=== PATIENT | female | born 1985 | race Caucasian/White ===

== ENCOUNTER 2019-10-12 09:13 | Inpatient (IN) | payer BC ==
[2019-10-12] MEDS ORDERED: Ondansetron 4 MG/2 ML SDV IVPUSH PRN (10:19)
[2019-10-12] MEDS ORDERED: Water For Irrigation,Sterile 1,000 ML Container IRR PRN (10:19)
[2019-10-12] MEDS ORDERED: Butorphanol 1 MG/ML SDV IVPUSH PRN (10:19)
[2019-10-12] MEDS ORDERED: Carboprost Tromethamine 250 MCG/1 ML Amp IM PRN (10:19)
[2019-10-12] MEDS ORDERED: Tranexamic Acid 1,000 MG in Sodium Chloride 0.9% 100 ML IV PRN (10:19)
[2019-10-12] MEDS ORDERED: Lidocaine 1% 50 ML MDV INJECT PRN (10:19)
[2019-10-12] MEDS ORDERED: Methylergonovine 0.2 MG/1 ML Amp IM PRN (10:19)
[2019-10-12] MEDS ORDERED: Misoprostol 200 MCG Tab PO PRN (10:19)
[2019-10-12] MEDS ORDERED: Sodium Chloride 0.9% 10 ML SDV IV PRN (10:19)
[2019-10-12] MEDS ORDERED: Sodium Chloride 0.9% 2.5 ML Syringe FLUSH PRN (10:19)
[2019-10-12] MEDS ORDERED: Sodium Chloride 0.9% 10 ML Syringe FLUSH PRN (10:19)
[2019-10-12] MEDS ORDERED: Ampicillin 2 GM in Sodium Chloride 0.9% 100 ML IV ONE (10:19)
[2019-10-12] MEDS ORDERED: Nalbuphine 10 MG/1 ML Vial IVPUSH PRN (10:19)
[2019-10-12] MEDS ORDERED: Oxytocin/0.9 % Sodium Chloride 30 UNIT/500 ML BAG IV SCH ×2 (10:30→23:15)
[2019-10-12] MEDS: Lactated Ringers 1,000 ML IV SCH ×3 (10:50→23:42)
[2019-10-12] MEDS: Ampicillin 1 GM in Sodium Chloride 0.9% 50 ML IV SCH ×2 (15:32→19:28)
[2019-10-12] MEDS: Misoprostol 50 MCG (1/2 of 100 MCG) Tab VAG SCH (15:33)
[2019-10-12] MEDS ORDERED: Oxytocin/Lactated Ringers 30 UNIT/500 ML BAG IV SCH (20:00)
--- NOTE | 2019-10-12 22:48 | PCM.PREANE ---
Preanesthetic Assessment - Anesthesia/Transfusion/Family Hx Anesthesia History: Prior Anesthesia Without Reaction Type of Anesthesia Reaction: Other (see below) (some nausea with first surgery, wakes up fast) Family History of Anesthesia Reaction: No Transfusion History: No Prior Transfusion(s) Intubation History: Unknown - Review of Systems General: No Symptoms Pulmonary: No Symptoms Cardiovascular: No Symptoms Gastrointestinal: No Symptoms Neurological: No Symptoms Other: Reports: None - Physical Assessment NPO Status Date: 10/12/19 NPO Status Time: 17:00 Height: 5 ft Weight: 83.915 kg ASA Class: 2 Mental Status: Alert & Oriented x3 Airway Class: Mallampati = 2 Dentition: Reports: Normal Dentition Thyro-Mental Finger Breadths: 3 ROM/Head Extension: Full Lungs: Clear to Auscultation, Normal Respiratory Effort Cardiovascular: Regular Rate, Regular Rhythm, Tachycardia - Lab Values: Laboratory Last Values WBC 11.68 K/uL (4.0-11.0) H 10/12/19 10:40 RBC 4.57 M/uL (4.30-5.90) 10/12/19 10:40 Hgb 13.3 g/dL (12.0-16.0) 10/12/19 10:40 Hct 39.8 % (36.0-46.0) 10/12/19 10:40 MCV 87.1 fL (80.0-98.0) 10/12/19 10:40 MCH 29.1 pg (27.0-32.0) 10/12/19 10:40 MCHC 33.4 g/dL (31.0-37.0) 10/12/19 10:40 RDW Std Deviation 42.9 fl (28.0-62.0) 10/12/19 10:40 RDW Coeff of Arlette 14 % (11.0-15.0) 10/12/19 10:40 Plt Count 153 K/uL (150-400) 10/12/19 10:40 MPV 10.90 fL (7.40-12.00) 10/12/19 10:40 Nucleated RBC % 0.0 /100WBC 10/12/19 10:40 Nucleated RBCs # 0 K/uL 10/12/19 10:40 Membrane Rupture POSITIVE 10/12/19 09:45 Blood Type O NEGATIVE 10/12/19 10:40 Antibody Screen NEGATIVE 10/12/19 10:40 - Allergies Allergies/Adverse Reactions: Allergies Allergy/AdvReac Type Severity Reaction Status Date / Time cefaclor [From Ceclor] Allergy Rash Verified 07/13/19 07:26 morphine Allergy Difficulty Verified 07/13/19 07:26 Breathing - Acknowledgements Anesthesia Type Planned: Epidural Pt an Appropriate Candidate for the Planned Anesthesia: Yes Alternatives and Risks of Anesthesia Discussed w Pt/Guardian: Yes Pt/Guardian Understands and Agrees with Anesthesia Plan: Yes Additional Comments: - 39 5/7 weeks, came in SROM, now augmenting labor, dilated 2-3 cm 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: - Past Surgical History Cardiovascular Surgical History: Reports: Vascular Surgery Other Cardiovascular Surgeries/Procedures: Popliteal artery intrappment Musculoskeletal Surgical History: Reports: Other (See Below) Other Musculoskeletal Surgeries/Procedures:: Exursion compartment entrappment - SUBSTANCE USE Smoking Status *Q: Never Smoker Second Hand Smoke Exposure: No Recreational Drug Use History: No - HOME MEDS Home Medications: Home Meds Omega3,5,6,7,9 No.1/Cerulean Oil [Complete [place] Softgel] 2 tsp DAILY 07/13/19 [ History] - CURRENT (IN HOUSE) MEDS Current Meds: Current Medications Butorphanol Tartrate (Stadol) 1 mg IVPUSH Q1H PRN PRN Reason: Pain Last Admin: 10/12/19 20:59 Dose: 1 mg Carboprost Tromethamine (Hemabate Ds) 250 mcg IM ASDIRECTED PRN PRN Reason: Post Hemorrhage Tranexamic Acid 1,000 mg/ (Sodium Chloride) 110 mls @ 660 mls/hr IV ONETIME PRN PRN Reason: Bleeding Lactated Ringer's (Ringers, Lactated) 1,000 mls @ 150 mls/hr IV ASDIRECTED [facility] Last Admin: 10/12/19 22:38 Dose: 999 mls/hr Oxytocin/Sodium Chloride (Oxytocin 30 Unit/500 Ml-Ns) 30 unit in 500 mls @ 500 mls/hr IV TITRATE [facility] Ampicillin Sodium 1 gm/ Sodium (Chloride) 50 mls @ 100 mls/hr IV Q4H [facility] Last Admin: 10/12/19 19:28 Dose: 100 mls/hr Oxytocin/Lactated Ringer's (Pitocin In Lr 30 Units/500 Ml) 30 unit in 500 mls @ 2 mls/hr IV TITRATE [facility]; Protocol Lidocaine HCl (Xylocaine 1%) 50 ml INJECT ONETIME PRN PRN Reason: Laceration repair Methylergonovine Maleate (Methergine) 0.2 mg IM ASDIRECTED PRN PRN Reason: Post Hemorrhage Misoprostol (Cytotec) 200 mcg PO ONETIME PRN PRN Reason: Post Hemorrhage Misoprostol (Cytotec) 25 mcg VAG Q6H [facility] Last Admin: 10/12/19 15:33 Dose: 25 mcg Nalbuphine HCl (Nubain) 10 mg IVPUSH Q1H PRN PRN Reason: Pain (severe 7-10) Ondansetron HCl (Zofran) 4 mg IVPUSH Q4H PRN PRN Reason: Nausea/Vomiting Sodium Chloride (Saline Flush) 10 ml FLUSH ASDIRECTED PRN PRN Reason: Keep Vein Open Sodium Chloride (Saline Flush) 2.5 ml FLUSH ASDIRECTED PRN PRN Reason: Keep Vein Open Sodium Chloride (Normal Saline) 10 ml IV ASDIRECTED PRN PRN Reason: IV Use Sterile Water (Sterile Water For Irrigation) 1,000 ml IRR ASDIRECTED PRN PRN Reason: delivery Discontinued Medications Ampicillin Sodium 2 gm/ Sodium (Chloride) 100 mls @ 200 mls/hr IV ONETIME ONE Stop: 10/12/19 10:48 Last Admin: 10/12/19 11:10 Dose: 200 mls/hr
[2019-10-12] MEDS ORDERED: Terbutaline 1 MG/ML SDV SUBCUT ONE (23:41)
[2019-10-13] MEDS: Ampicillin 1 GM in Sodium Chloride 0.9% 50 ML IV SCH ×3 (00:06→10:20)
[2019-10-13] MEDS: Lactated Ringers 1,000 ML IV SCH ×2 (03:32→05:01)
[2019-10-13] MEDS ORDERED: Bupivacaine 0.25% 10 ML SDV ONE (05:00)
[2019-10-13] MEDS ORDERED: Oxytocin 10 Units/1 ML SDV ONE (05:04)
[2019-10-13] MEDS ORDERED: Ondansetron 4 MG/2 ML SDV ONE (05:04)
[2019-10-13] MEDS ORDERED: Phenylephrine 1% 10 MG/ML SDV ONE (05:04)
[2019-10-13] MEDS ORDERED: Bupivacaine 0.5% 10 ML SDV ONE (05:30)
[2019-10-13] MEDS ORDERED: Morphine PF 10 MG/10 ML SDV ONE (05:40)
[2019-10-13] MEDS ORDERED: Methylergonovine 0.2 MG/1 ML Amp IM PRN (06:46)
[2019-10-13] MEDS ORDERED: Misoprostol 200 MCG Tab RECTAL PRN (06:46)
[2019-10-13] MEDS ORDERED: Acetaminophen/oxyCODONE 325-5 MG Tab PO PRN ×2 (06:46→07:01)
[2019-10-13] MEDS ORDERED: Lanolin 100% Cream 7 GM Tube TOP PRN (06:46)
[2019-10-13] MEDS ORDERED: Oxytocin 10 Units/1 ML SDV IM PRN (06:46)
[2019-10-13] MEDS ORDERED: diphenhydrAMINE 50 MG/ML SDV IVPUSH PRN ×2 (06:46→07:01)
[2019-10-13] MEDS ORDERED: Ondansetron 4 MG/2 ML SDV IVPUSH PRN ×2 (06:46→07:01)
[2019-10-13] MEDS ORDERED: Tranexamic Acid 1,000 MG in Sodium Chloride 0.9% 100 ML IV PRN (06:46)
[2019-10-13] MEDS ORDERED: Bisacodyl 10 MG Supp RECTAL PRN (06:46)
--- NOTE | 2019-10-13 06:46 | PCM.OPNOTE ---
- General Post-Op/Procedure Note Date of Surgery/Procedure: 10/13/19 Operative Procedure(s): Primary LTCS Findings: Viable male APGARs 7, 9 weight 3370 g. Placenta to pathology. Normal appearing pelvis. Pre Op Diagnosis: 39/6 week IUP. intolerance to labor/ tachycardia Post-Op Diagnosis: Same Anesthesia Technique: Epidural Primary Surgeon: Lindsey Johnson Pathology: placenta Fluid Replacement, Intraop: 1,200 EBL in mLs: 600 Complications: none known Condition: Stable Free Text/Narrative:: Intake & Output 10/12/19 10/12/19 10/13/19 14:59 22:59 06:59 Intake Total 1050 3050 Balance 1050 3050 Dictation [id number]
[2019-10-13] MEDS ORDERED: Lactated Ringers 1,000 ML IV SCH (07:00)
[2019-10-13] MEDS ORDERED: fentaNYL 100 MCG/2 ML SDV IVPUSH PRN (07:01)
[2019-10-13] MEDS ORDERED: Naloxone 0.4 MG/ML Syringe IVPUSH PRN (07:01)
[2019-10-13] MEDS ORDERED: Nalbuphine 10 MG/1 ML Vial IVPUSH PRN (07:01)
[2019-10-13] MEDS: Ketorolac 30 MG/ML SDV IVPUSH SCH ×3 (07:05→18:55)
[2019-10-13] MEDS: Docusate Sodium 100 MG Cap PO SCH ×2 (10:15→21:16)
[2019-10-13] MEDS: Misoprostol 50 MCG (1/2 of 100 MCG) Tab VAG SCH ×2 (10:19→10:20)
[2019-10-13] MEDS: Simethicone 80 MG Tab.Chew PO SCH ×3 (12:01→23:48)
--- NOTE | 2019-10-13 15:45 | OR ---
SURGEON: Lindsey Johnson M.D. DATE OF PROCEDURE: 10/13/2019 PREOPERATIVE DIAGNOSES: 1. 39 and 6 weeks intrauterine . 2. intolerance to labor, tachycardia. POSTOPERATIVE DIAGNOSES: 1. 39 and 6 weeks intrauterine . 2. intolerance to labor, tachycardia. PROCEDURE: Primary low-transverse section. PRIMARY SURGEON: Lindsey Johnson M.D. ANESTHESIA: Epidural. ESTIMATED BLOOD LOSS: 600 mL. COMPLICATIONS: None known. FINDINGS: Viable male score of 7 at one minute and 9 at five minutes. Weight of 3370 g. Delivery of intact placenta, 3-vessel cord. Placenta to pathology. Clear amniotic fluid. DISPOSITION: The patient to LDR and nursery, stable. DESCRIPTION OF PROCEDURE: Marcia is a 33-year-old, G1, P0, at 39-6/7 weeks' gestational age, who presented on the morning of 10/12/2019, with spontaneous rupture of membranes at approximately 3 a.m. She is group B beta strep positive, therefore, was initiated on ampicillin prophylaxis. She was monitored and with no evidence of active labor, was initiated on Cytotec augmentation on the afternoon of 10/12/2019. I assumed care for the patient at approximately 6 p.m. on 10/12/2019. She responded nicely to the dosing of Cytotec, was found to be 2 to 3, 80% effaced, -3 station. Shortly after, she became increasingly uncomfortable, underwent epidural, became more comfortable. She then had spontaneous rupture of the forebag and shortly thereafter had a prolonged deceleration to the 60s to 70s, which recovered with positional changes, IV fluid hydration, and dose of terbutaline. The patient was monitored with returning of heart tones to 140s with accelerations. Therefore, with no evidence of active labor, began low-dose Pitocin. The patient responded nicely to this, progressed to approximately 5 cm. Shortly before 4 a.m., however, there was another prolonged deceleration to the 60s to 70s with slow return to baseline and really instead of returning to baseline, heart tones became tachycardia in the 160 to 170s, with resuscitation efforts with positional changes, IV fluid hydration, placement of FSE, but the heart tones remained tachycardic in the 170s with minimal variability. This was monitored, but there was no evidence of returning to baseline of 140s. Therefore, I discussed with Marcia and her proceeding with delivery since remote from delivery and persistent tachycardia. The patient does remain afebrile at this point. The patient and her voiced their understanding and agreed to proceed with . Risks of procedure have been discussed with her including infection; bleeding; possible trauma to the surrounding bowel, bladder, ureters; in case of excessive blood loss, need for blood product transfusion; in rare lifesaving circumstances, need for hysterectomy; risk for thromboembolic event, risk of anesthesia. The patient was taken to the operating room where her epidural was rebolused. She was placed in the dorsal supine position with leftward tilt. SCDs to the lower extremities. Cummings had already been placed to gravity. Was prepped and draped in usual sterile fashion. Time-out was performed. Anesthesia was tested and found to be adequate. A Pfannenstiel skin incision was now created, carried down to the level of the rectus fascia which was incised in midline, lateralized on either side sharply and bluntly. Superior aspect of fascia was tented upward, dissected sharply and bluntly away from underlying muscle. In a similar aspect, this was performed in the inferior aspect of the fascia. Rectus muscles were midline. Peritoneum was entered. Rectus muscle and peritoneum were now lateralized bluntly. Uterine position and position palpated. Self-retaining retractor was placed. Uterovesical reflection was visualized. Bladder flap was created sharply and bluntly. Bladder was mobilized away from lower uterine segment. Low transverse hysterotomy was performed. Uterine cavity was entered with blunt-ended scalpel. Hysterotomy was lateralized bluntly. The 's head was flexed, delivered from the pelvis and fundal pressure was applied. 's anterior shoulder, posterior shoulder, and remainder of body was delivered without difficulty. The infant's oropharynx and nares were bulb suctioned. Cord was clamped x2 and cut. Infant was handed off to attending nursery staff and Dr. Flor from pediatrics. Cord arterial, cord venous, cord blood sampling were obtained. The placenta was now delivered. Uterine cavity was cleared of all clot and debris. Hysterotomy was repaired using 0 chromic in continuous running locked fashion followed by re- imbricating layer. The patient has had previous suture reaction, so we opted to use chromic to help diminish the risk of this as much as possible. The posterior aspect of the uterus inspected. No defects or hematomas found be forming. Region was well irrigated, suction dried. Colonic gutters were cleared of all clot and debris, well irrigated, suction dried. Hysterotomy was again inspected, found to be hemostatic. Self-retaining retractor now gently removed. Bladder blade was placed. Hysterotomy once again inspected, found to be hemostatic. Rectus muscle, peritoneum were now reapproximated using 0 chromic with inverted mattress suture technique. Anterior aspect of the muscle, posterior aspect of fascia were closely inspected. Any areas of oozing were cauterized. Skin edges were reapproximated using 0 chromic in a continuous running fashion, beginning laterally on each side and meeting in the midline. Subcu tissue was well irrigated, suction dried. Any areas of oozing were cauterized. Skin edges were reapproximated using 3-0 chromic in subcuticular fashion followed by half-inch Steri-Strips and Mastisol. Uterus remained firm. Hemostasis evident. The patient tolerated the procedure well. Sponge and needle counts correct x2. Patient will go to LDRP in stable condition, infant to nursery. JONATHAN / BRANDON /[id number]
[2019-10-14] MEDS: Ketorolac 30 MG/ML SDV IVPUSH SCH ×2 (01:22→06:32)
[2019-10-14] MEDS: Simethicone 80 MG Tab.Chew PO SCH ×3 (05:49→18:11)
--- NOTE | 2019-10-14 07:16 | PCM48HPAN ---
Post Anesthesia Note - EVALUATION WITHIN 48HRS OF ANESTHETIC Vital Signs in Normal Range: Yes Patient Participated in Evaluation: Yes Respiratory Function Stable: Yes Airway Patent: Yes Cardiovascular Function Stable: Yes Hydration Status Stable: Yes Pain Control Satisfactory: Yes Nausea and Vomiting Control Satisfactory: Yes Mental Status Recovered: Yes Vital Signs: Last Vital Signs Temp 97.9 F 10/14/19 05:19 Pulse 90 10/14/19 05:19 Resp 15 10/14/19 05:19 BP 99/55 L 10/14/19 05:19 Pulse Ox 96 10/14/19 05:19
--- NOTE | 2019-10-14 08:05 | PCM.PNPP ---
- General Info Date of Service: 10/14/19 Functional Status: Reports: Pain Controlled, Tolerating Diet, Ambulating, Urinating - Review of Systems General: Reports: No Symptoms HEENT: Reports: No Symptoms Pulmonary: Reports: No Symptoms Cardiovascular: Reports: No Symptoms Gastrointestinal: Reports: No Symptoms Genitourinary: Reports: No Symptoms Musculoskeletal: Reports: No Symptoms Skin: Reports: No Symptoms Neurological: Reports: No Symptoms Psychiatric: Reports: No Symptoms - Patient Data Vital Signs - Most Recent: Last Vital Signs Temp 36.6 C 10/14/19 05:19 Pulse 90 10/14/19 05:19 Resp 16 10/14/19 07:00 BP 99/55 L 10/14/19 05:19 Pulse Ox 98 10/14/19 07:00 Weight - Most Recent: 83.915 kg I&O - Last 24 Hours: Intake & Output 10/13/19 10/14/19 10/14/19 22:59 06:59 14:59 Intake Total 846 Output Total 1200 2350 Balance -354 -2350 Lab Results - Last 24 Hours: Laboratory Results - last 24 hr 10/12/19 10/14/19 Range/Units 10:40 05:47 Hgb 10.5 L (12.0-16.0) g/dL Hct 32.0 L (36.0-46.0) % RPR Non-Reac (Non-Reac) Med Orders - Current: Current Medications Bisacodyl (Dulcolax) 10 mg RECTAL ONETIME PRN PRN Reason: Constipation Butorphanol Tartrate (Stadol) 1 mg IVPUSH Q1H PRN PRN Reason: Pain Last Admin: 10/12/19 20:59 Dose: 1 mg Carboprost Tromethamine (Hemabate Ds) 250 mcg IM ASDIRECTED PRN PRN Reason: Post Hemorrhage Diphenhydramine HCl (Benadryl) 25 mg IVPUSH Q6H PRN PRN Reason: Itching or Nausea Docusate Sodium (Colace) 100 mg PO BID PIERO Last Admin: 10/13/19 21:16 Dose: 100 mg Emollient Ointment (Lansinoh Hpa) 0 gm TOP ASDIRECTED PRN PRN Reason: Sore Nipples Fentanyl (Sublimaze) 50 mcg IVPUSH Q1H PRN PRN Reason: Pain (severe 7-10) Oxytocin/Sodium Chloride (Oxytocin 30 Unit/500 Ml-Ns) 30 unit in 500 mls @ 500 mls/hr IV TITRATE PIERO Oxytocin/Sodium Chloride (Oxytocin 30 Unit/500 Ml-Ns) 30 unit in 500 mls @ 2 mls/hr IV TITRATE [facility]; Protocol Last Infusion: 10/13/19 02:38 Dose: 6 munits/min, 6 mls/hr Tranexamic Acid 1,000 mg/ (Sodium Chloride) 110 mls @ 660 mls/hr IV ONETIME PRN PRN Reason: Bleeding Lactated Ringer's (Ringers, Lactated) 1,000 mls @ 125 mls/hr IV ASDIRECTED [facility] Last Admin: 10/13/19 12:08 Dose: 125 mls/hr Ibuprofen (Motrin) 800 mg PO Q8H PRN PRN Reason: mild pain or fever Lidocaine HCl (Xylocaine 1%) 50 ml INJECT ONETIME PRN PRN Reason: Laceration repair Methylergonovine Maleate (Methergine) 0.2 mg IM ASDIRECTED PRN PRN Reason: Post Hemorrhage Methylergonovine Maleate (Methergine) 0.2 mg IM ONETIME PRN PRN Reason: Excessive Vaginal Bleeding Misoprostol (Cytotec) 200 mcg PO ONETIME PRN PRN Reason: Post Hemorrhage Misoprostol (Cytotec) 1,000 mcg RECTAL ONETIME PRN PRN Reason: excessive bleeding Nalbuphine HCl (Nubain) 10 mg IVPUSH Q1H PRN PRN Reason: Pain (severe 7-10) Nalbuphine HCl (Nubain) 5 mg IVPUSH ASDIRECTED PRN PRN Reason: Itching Ondansetron HCl (Zofran) 4 mg IVPUSH Q4H PRN PRN Reason: Nausea/Vomiting Ondansetron HCl (Zofran) 4 mg IVPUSH Q6H PRN PRN Reason: Nausea Oxycodone/Acetaminophen (Percocet 325-5 Mg) 1 tab PO Q4H PRN PRN Reason: Pain (moderate 4-6) Oxycodone/Acetaminophen (Percocet 325-5 Mg) 2 tab PO Q4H PRN PRN Reason: Pain (moderate 4-6) Oxycodone/Acetaminophen (Percocet 325-5 Mg) 2 tab PO Q6H PRN PRN Reason: Pain (moderate 4-6) Oxytocin (Pitocin) 10 unit IM ASDIRECTED PRN PRN Reason: Excessive Vaginal Bleeding Simethicone (Simethicone) 160 mg PO QID [facility] Last Admin: 10/14/19 05:49 Dose: 160 mg Sodium Chloride (Saline Flush) 10 ml FLUSH ASDIRECTED PRN PRN Reason: Keep Vein Open Sodium Chloride (Saline Flush) 2.5 ml FLUSH ASDIRECTED PRN PRN Reason: Keep Vein Open Sodium Chloride (Normal Saline) 10 ml IV ASDIRECTED PRN PRN Reason: IV Use Sterile Water (Sterile Water For Irrigation) 1,000 ml IRR ASDIRECTED PRN PRN Reason: delivery Discontinued Medications Bupivacaine HCl (Sensorcaine-Mpf 0.25%) Confirm Administered Dose 10 ml .ROUTE .STBeatrobo-VoodooVox ONE Stop: 10/13/19 05:01 Last Admin: 10/13/19 10:20 Dose: Not Given Bupivacaine HCl (Sensorcaine-Mpf 0.5%) Confirm Administered Dose 10 ml .ROUTE .STK-MED ONE Stop: 10/13/19 05:31 Last Admin: 10/13/19 10:20 Dose: Not Given Diphenhydramine HCl (Benadryl) 25 mg IVPUSH Q4H PRN PRN Reason: Itching Stop: 10/14/19 07:01 Tranexamic Acid 1,000 mg/ (Sodium Chloride) 110 mls @ 660 mls/hr IV ONETIME PRN PRN Reason: Bleeding Ampicillin Sodium 2 gm/ Sodium (Chloride) 100 mls @ 200 mls/hr IV ONETIME ONE Stop: 10/12/19 10:48 Last Admin: 10/12/19 11:10 Dose: 200 mls/hr Lactated Ringer's (Ringers, Lactated) 1,000 mls @ 150 mls/hr IV ASDIRECTED [facility] Last Admin: 10/13/19 05:01 Dose: 999 mls/hr Ampicillin Sodium 1 gm/ Sodium (Chloride) 50 mls @ 100 mls/hr IV Q4H [facility] Last Admin: 10/13/19 10:20 Dose: Not Given Oxytocin/Lactated Ringer's (Pitocin In Lr 30 Units/500 Ml) 30 unit in 500 mls @ 2 mls/hr IV TITRATE [facility]; Protocol Ketorolac Tromethamine (Toradol) 30 mg IVPUSH Q6H [facility]ERO Stop: 10/14/19 07:01 Last Admin: 10/14/19 06:32 Dose: 30 mg Misoprostol (Cytotec) 25 mcg VAG Q6H [facility]ERO Last Admin: 10/13/19 10:20 Dose: Not Given Morphine Sulfate (Duramorph Pf) Confirm Administered Dose 10 mg .ROUTE .STK-MED ONE Stop: 10/13/19 05:41 Naloxone HCl (Narcan) 0.1 mg IVPUSH ONETIME PRN PRN Reason: Respiratory Depression Stop: 10/14/19 07:01 Ondansetron HCl (Zofran) 4 mg IVPUSH Q4H PRN PRN Reason: Nausea/Vomiting Ondansetron HCl (Zofran) Confirm Administered Dose 4 mg .ROUTE .STK-MED ONE Stop: 10/13/19 05:05 Oxytocin (Pitocin) Confirm Administered Dose 20 unit .ROUTE .STK-MED ONE Stop: 10/13/19 05:05 Phenylephrine HCl (Clay-Synephrine) Confirm Administered Dose 10 mg .ROUTE .STK- MED ONE Stop: 10/13/19 05:05 Terbutaline Sulfate (Brethine) 0.25 mg SUBCUT ONETIME ONE Stop: 10/12/19 23:42 Last Admin: 10/13/19 10:20 Dose: Not Given - Interaction Infant Disposition, : in Room with Family Interaction: Holding Feeding: Breastfed ; Nursed Well Support Person: - Recovery Exam Fundal Tone: Firm Fundal Level: 1 Fingerbreadths Below Umbilicus Fundal Placement: Midline Lochia Amount: Scant Lochia Color: Rubra/Red Bladder Status: Indwelling Catheter in Place Urinary Elimination: Indwelling Catheter - Exam General: Alert Neck: Supple Lungs: Clear to Auscultation, Normal Respiratory Effort Cardiovascular: Regular Rate, Regular Rhythm GI/Abdominal Exam: Normal Bowel Sounds, Soft, Non-Tender, No Mass Extremities: Normal Inspection, Non-Tender, No Pedal Edema Skin: Warm, Dry, Intact Wound/Incisions: Dressing Dry and Intact Neurological: No New Focal Deficit Psy/Mental Status: Alert, Normal Affect, Normal Mood - Problem List & Annotations (1) Abnormal heart rate SNOMED Code(s): 071631926 Code(s): KVT6823 - Status: Acute Current Visit: Yes (2) Arrest of dilation, delivered, current hospitalization SNOMED Code(s): 32342106, 330287033 Code(s): O62.1 - SECONDARY UTERINE INERTIA Status: Acute Current Visit: Yes (3) delivery delivered SNOMED Code(s): 224272811 Code(s): O82 - ENCOUNTER FOR DELIVERY WITHOUT INDICATION Status: Acute Current Visit: Yes - Problem List Review Problem List Initiated/Reviewed/Updated: Yes - Assessment Assessment:: POD#1 after primary low transverse for prolonged labor, PROM and abnormal heart tones. Tolerating diet, has ambulated, no complaints. fairly well. - Plan Plan:: Continue postop care. Remove dressing, shower, ambulate, discussed oral pain medication and plan.
[2019-10-14] MEDS: Acetaminophen/oxyCODONE 325-5 MG Tab PO PRN ×4 (09:34→22:51)
[2019-10-14] MEDS: Docusate Sodium 100 MG Cap PO SCH ×2 (09:34→21:51)
[2019-10-14] MEDS: Ibuprofen 800 MG Tab PO PRN ×2 (13:10→22:52)
[2019-10-15] MEDS: Simethicone 80 MG Tab.Chew PO SCH ×3 (00:23→13:50)
[2019-10-15] MEDS: Acetaminophen/oxyCODONE 325-5 MG Tab PO PRN ×3 (03:08→13:49)
[2019-10-15] MEDS: Ibuprofen 800 MG Tab PO PRN (07:21)
[2019-10-15] MEDS: Docusate Sodium 100 MG Cap PO SCH (10:03)
--- NOTE | 2019-10-15 10:16 | PCM.PNPP ---
- General Info Date of Service: 10/15/19 Functional Status: Reports: Pain Controlled, Tolerating Diet, Ambulating, Urinating - Review of Systems General: Reports: No Symptoms HEENT: Reports: No Symptoms Pulmonary: Reports: No Symptoms Cardiovascular: Reports: No Symptoms Gastrointestinal: Reports: No Symptoms Genitourinary: Reports: No Symptoms Musculoskeletal: Reports: No Symptoms Skin: Reports: No Symptoms Neurological: Reports: No Symptoms Psychiatric: Reports: No Symptoms - General Info Date of Service: 10/08/19 - Patient Data Vital Signs - Most Recent: Last Vital Signs Temp 37.0 C 10/15/19 04:50 Pulse 76 10/15/19 09:00 Resp 18 10/15/19 09:00 BP 117/62 10/15/19 09:00 Pulse Ox 97 10/15/19 09:00 Weight - Most Recent: 83.915 kg Med Orders - Current: Current Medications Bisacodyl (Dulcolax) 10 mg RECTAL ONETIME PRN PRN Reason: Constipation Butorphanol Tartrate (Stadol) 1 mg IVPUSH Q1H PRN PRN Reason: Pain Last Admin: 10/12/19 20:59 Dose: 1 mg Carboprost Tromethamine (Hemabate Ds) 250 mcg IM ASDIRECTED PRN PRN Reason: Post Hemorrhage Diphenhydramine HCl (Benadryl) 25 mg IVPUSH Q6H PRN PRN Reason: Itching or Nausea Docusate Sodium (Colace) 100 mg PO BID PIERO Last Admin: 10/15/19 10:03 Dose: 100 mg Emollient Ointment (Lansinoh Hpa) 0 gm TOP ASDIRECTED PRN PRN Reason: Sore Nipples Fentanyl (Sublimaze) 50 mcg IVPUSH Q1H PRN PRN Reason: Pain (severe 7-10) Oxytocin/Sodium Chloride (Oxytocin 30 Unit/500 Ml-Ns) 30 unit in 500 mls @ 500 mls/hr IV TITRATE PIERO Oxytocin/Sodium Chloride (Oxytocin 30 Unit/500 Ml-Ns) 30 unit in 500 mls @ 2 mls/hr IV TITRATE PIERO; Protocol Last Infusion: 10/13/19 02:38 Dose: 6 munits/min, 6 mls/hr Tranexamic Acid 1,000 mg/ (Sodium Chloride) 110 mls @ 660 mls/hr IV ONETIME PRN PRN Reason: Bleeding Lactated Ringer's (Ringers, Lactated) 1,000 mls @ 125 mls/hr IV ASDIRECTED FORMER[facility], 1928–1983 Last Admin: 10/13/19 12:08 Dose: 125 mls/hr Ibuprofen (Motrin) 800 mg PO Q8H PRN PRN Reason: mild pain or fever Last Admin: 10/15/19 07:21 Dose: 800 mg Lidocaine HCl (Xylocaine 1%) 50 ml INJECT ONETIME PRN PRN Reason: Laceration repair Methylergonovine Maleate (Methergine) 0.2 mg IM ASDIRECTED PRN PRN Reason: Post Hemorrhage Methylergonovine Maleate (Methergine) 0.2 mg IM ONETIME PRN PRN Reason: Excessive Vaginal Bleeding Misoprostol (Cytotec) 200 mcg PO ONETIME PRN PRN Reason: Post Hemorrhage Misoprostol (Cytotec) 1,000 mcg RECTAL ONETIME PRN PRN Reason: excessive bleeding Nalbuphine HCl (Nubain) 10 mg IVPUSH Q1H PRN PRN Reason: Pain (severe 7-10) Nalbuphine HCl (Nubain) 5 mg IVPUSH ASDIRECTED PRN PRN Reason: Itching Ondansetron HCl (Zofran) 4 mg IVPUSH Q4H PRN PRN Reason: Nausea/Vomiting Ondansetron HCl (Zofran) 4 mg IVPUSH Q6H PRN PRN Reason: Nausea Oxycodone/Acetaminophen (Percocet 325-5 Mg) 1 tab PO Q4H PRN PRN Reason: Pain (moderate 4-6) Last Admin: 10/15/19 07:19 Dose: 1 tab Oxycodone/Acetaminophen (Percocet 325-5 Mg) 2 tab PO Q4H PRN PRN Reason: Pain (moderate 4-6) Oxycodone/Acetaminophen (Percocet 325-5 Mg) 2 tab PO Q6H PRN PRN Reason: Pain (moderate 4-6) Oxytocin (Pitocin) 10 unit IM ASDIRECTED PRN PRN Reason: Excessive Vaginal Bleeding Simethicone (Simethicone) 160 mg PO QID [facility], [facility] Last Admin: 10/15/19 05:52 Dose: 160 mg Sodium Chloride (Saline Flush) 10 ml FLUSH ASDIRECTED PRN PRN Reason: Keep Vein Open Sodium Chloride (Saline Flush) 2.5 ml FLUSH ASDIRECTED PRN PRN Reason: Keep Vein Open Sodium Chloride (Normal Saline) 10 ml IV ASDIRECTED PRN PRN Reason: IV Use Sterile Water (Sterile Water For Irrigation) 1,000 ml IRR ASDIRECTED PRN PRN Reason: delivery Discontinued Medications Bupivacaine HCl (Sensorcaine-Mpf 0.25%) Confirm Administered Dose 10 ml .ROUTE .STK-MED ONE Stop: 10/13/19 05:01 Last Admin: 10/13/19 10:20 Dose: Not Given Bupivacaine HCl (Sensorcaine-Mpf 0.5%) Confirm Administered Dose 10 ml .ROUTE .oragenics-MED ONE Stop: 10/13/19 05:31 Last Admin: 10/13/19 10:20 Dose: Not Given Diphenhydramine HCl (Benadryl) 25 mg IVPUSH Q4H PRN PRN Reason: Itching Stop: 10/14/19 07:01 Tranexamic Acid 1,000 mg/ (Sodium Chloride) 110 mls @ 660 mls/hr IV ONETIME PRN PRN Reason: Bleeding Ampicillin Sodium 2 gm/ Sodium (Chloride) 100 mls @ 200 mls/hr IV ONETIME ONE Stop: 10/12/19 10:48 Last Admin: 10/12/19 11:10 Dose: 200 mls/hr Lactated Ringer's (Ringers, Lactated) 1,000 mls @ 150 mls/hr IV ASDIRECTED [facility], [facility]–1983 Last Admin: 10/13/19 05:01 Dose: 999 mls/hr Ampicillin Sodium 1 gm/ Sodium (Chloride) 50 mls @ 100 mls/hr IV Q4H [facility], [facility] Last Admin: 10/13/19 10:20 Dose: Not Given Oxytocin/Lactated Ringer's (Pitocin In Lr 30 Units/500 Ml) 30 unit in 500 mls @ 2 mls/hr IV TITRATE [facility], [facility]; Protocol Ketorolac Tromethamine (Toradol) 30 mg IVPUSH Q6H [facility], [facility] Stop: 10/14/19 07:01 Last Admin: 10/14/19 06:32 Dose: 30 mg Misoprostol (Cytotec) 25 mcg VAG Q6H [facility], [facility] Last Admin: 10/13/19 10:20 Dose: Not Given Morphine Sulfate (Duramorph Pf) Confirm Administered Dose 10 mg .ROUTE .STK-MED ONE Stop: 10/13/19 05:41 Naloxone HCl (Narcan) 0.1 mg IVPUSH ONETIME PRN PRN Reason: Respiratory Depression Stop: 10/14/19 07:01 Ondansetron HCl (Zofran) 4 mg IVPUSH Q4H PRN PRN Reason: Nausea/Vomiting Ondansetron HCl (Zofran) Confirm Administered Dose 4 mg .ROUTE .STK-MED ONE Stop: 10/13/19 05:05 Oxytocin (Pitocin) Confirm Administered Dose 20 unit .ROUTE .STK-MED ONE Stop: 10/13/19 05:05 Phenylephrine HCl (Clay-Synephrine) Confirm Administered Dose 10 mg .ROUTE .STK- MED ONE Stop: 10/13/19 05:05 Terbutaline Sulfate (Brethine) 0.25 mg SUBCUT ONETIME ONE Stop: 10/12/19 23:42 Last Admin: 10/13/19 10:20 Dose: Not Given - Interaction Infant Disposition, : in Room with Family Interaction: Holding Infant Infant Feeding: Breastfed Infant; Nursed Well Support Person: - Recovery Exam Fundal Tone: Firm Fundal Level: 1 Fingerbreadths Below Umbilicus Fundal Placement: Midline Lochia Amount: Scant Lochia Color: Rubra/Red Perineum Description: Intact, Minimal Bruising/Swelling Episiotomy/Laceration: None Bladder Status: Voiding Urinary Elimination: Indwelling Catheter - Exam General: Alert Neck: Supple Lungs: Normal Respiratory Effort GI/Abdominal Exam: Soft, Non-Tender, No Distention Extremities: Normal Inspection, Non-Tender. No: No Pedal Edema (1+ bilateral) Wound/Incisions: Healing Well Neurological: No New Focal Deficit - Problem List & Annotations (1) Abnormal heart rate SNOMED Code(s): 273544213 Code(s): FZA7913 - Status: Acute Current Visit: Yes (2) Arrest of dilation, delivered, current hospitalization SNOMED Code(s): 88118247, 203105156 Code(s): O62.1 - SECONDARY UTERINE INERTIA Status: Acute Current Visit: Yes (3) delivery delivered SNOMED Code(s): 346997048 Code(s): O82 - ENCOUNTER FOR DELIVERY WITHOUT INDICATION Status: Acute Current Visit: Yes - Problem List Review Problem List Initiated/Reviewed/Updated: Yes - My Orders Last 24 Hours: My Active Orders 10/15/19 10:14 Ready for Discharge [RC] PER UNIT ROUTINE - Assessment Assessment:: POD#2 after primary low transverse for prolonged labor, PROM and abnormal heart tones. Pain well controlled, ambulating without assistance , is going well, would like to be discharged today - Plan Plan:: Dismiss to home, discharge instructions reviewed.
== END 2019-10-15 13:30 | disposition home or self-care (01) | DRG 540 ==
LOC: MW.OB 09:13 → MW.OBCHECK 09:13 → MW.OB 10:19 → OBSVTOIN 10-13 05:49 → MW.OB 10-13 09:00
PROVIDERS: ADMIT Obstetrics & Gynecology; ATTEND Obstetrics & Gynecology
PROC: 10D00Z1 Extraction of Products of Conception, Low, Open Approach (ICD-10-PCS; principal; 2019-10-13)
PROC: 3E0P7VZ Introduction of Hormone into Female Reproductive, Via Natural or Artificial Opening (ICD-10-PCS; 2019-10-13)
PROC: 3E033VJ Introduction of Other Hormone into Peripheral Vein, Percutaneous Approach (ICD-10-PCS; 2019-10-13)
PROC: 3E0R3BZ Introduction of Anesthetic Agent into Spinal Canal, Percutaneous Approach (ICD-10-PCS; 2019-10-13)
DX: O42.02 Full-term premature rupture of membranes, onset of labor within 24 hours of rupture (principal); O99.824 Streptococcus B carrier state complicating childbirth; Z3A.39 39 weeks gestation of pregnancy; Z37.0 Single live birth; O62.1 Secondary uterine inertia; O76 Abnormality in fetal heart rate and rhythm complicating labor and delivery
CPT/HCPCS: 36415; 51702; 59025; 82803; 84112; 85014; 85018; 85027; 86592; 86593; 86850; 86900; 86901; 88307; A9270-GY; J0290; J0595; J1885; J2270; J2370; J2405; J2590; J7050; J7120